=== PATIENT | male | born 1950 | race Caucasian/White ===

== ENCOUNTER 2025-02-25 07:25 | Day surgery (SDC) | payer MEDICARE, BC, SELFPAY ==
[2025-02-22 14:23] VITALS: BMI 24.3
[2025-02-25] VITALS (15 sets, daily range): BP systolic 135–164; BP diastolic 83–101; PULSE 64–96; RESP 14–20; TEMP 36.2–36.6; O2SAT 97–100; BMI 24.0
[2025-02-25] MEDS: SODIUM CHLORIDE 0.9% 500 ML 500 ML 20 ML IV (09:07)
[2025-02-25] MEDS: BENZOCAINE 20% (Hurricaine) SPRAY 1 DOSE TOP (09:13)
[2025-02-25] MEDS: MIDAZOLAM INJ 1 MG/ML VIAL 2 ML (ASD USE ONLY) 2 MG IVP (09:37)
[2025-02-25] MEDS: fentaNYL CIT INJ 50 mCg/ML AMP 2ML (ASD USE ONLY) IVP (09:37)
--- NOTE | 2025-02-25 10:08 | SUR.PHASEII ---
5944 patient is sleepy and arousable, breathing unlabored, s/p EGD and colonoscopy under IV sedation, report received from Beatriz HERNANDEZ
--- NOTE | 2025-02-25 10:33 | SUR.PHASEII ---
1030 patient is awake, alert, breathing unlabored, able to pass gas, able to tolerate 7up and ice chips with no nausea or vomiting, meets discharge criteria, discharge instructions given to patient and spouse, patient discharged home in wheelchair with all belongings.
== END 2025-02-25 10:30 | disposition home or self-care (01) ==
PROVIDERS: PCP Nurse Practitioner Family; Referring Provider Specialist; Visit Provider Specialist
PROC: 0DBE8ZX Excision of Large Intestine, Via Natural or Artificial Opening Endoscopic, Diagnostic (ICD-10-PCS; CPT 45380; principal; 2025-02-25 08:30)
PROC: (CPT 43239; 2025-02-25 08:30)
DX: Z12.11 Encounter for screening for malignant neoplasm of colon (principal); K64.1 Second degree hemorrhoids; K57.30 Diverticulosis of large intestine without perforation or abscess without bleeding; Z86.0101 Personal history of adenomatous and serrated colon polyps; J45.909 Unspecified asthma, uncomplicated
CPT/HCPCS: G0105; A4649; C1769; J1200; J2250; J3010; J7999; A9270